=== PATIENT | female | born 1970 | race Caucasian/White ===

== ENCOUNTER → 2020-10-06 12:55 | Outpatient (CLI) | payer OTHER, SELFPAY ==
--- NOTE | ~2020-10-06 | MM_ITS ---
EXAMINATION: MM screening lety BI w stefania HISTORY: Screening mammogram TECHNIQUE: Craniocaudal and mediolateral oblique 3-D tomosynthesis images were obtained and synthetic 2-D images were generated. CAD analysis was submitted and interpreted. COMPARISON: 11/25/2017 bilateral digital screening mammogram BREAST PARENCHYMAL COMPOSITION: The breasts are heterogeneously dense, which may obscure small masses . FINDINGS: Right breast: There is no evidence of suspicious mass, calcification, or architectural distortion to suggest malignancy in the right breast. There has been no suspicious interval change. Left breast: There is asymmetry in the deep central left breast on CC projection. Left diagnostic lety mogram is recommended, with ultrasound if required. IMPRESSION: 1. Left breast mammographic asymmetry 2. Diagnostic left mammogram and, if necessary, left breast ultrasound are recommended BI-RADS Category 0: Incomplete: Needs additional imaging evaluation. Reviewed, dictated and finalized at location A. IMPRESSION: 1. Left breast mammographic asymmetry 2. Diagnostic left mammogram and, if necessary, left breast ultrasound are damaris mmended BI-RADS Category 0: Incomplete: Needs additional imaging evaluation.
== END ==
PROVIDERS: PCP Internal Medicine; Visit Provider Nurse Practitioner
DX: Z12.31 Encounter for screening mammogram for malignant neoplasm of breast (principal); R92.8 Other abnormal and inconclusive findings on diagnostic imaging of breast
CPT/HCPCS: 77063; 77067

== ENCOUNTER → 2020-11-03 07:58 | Outpatient (CLI) | payer OTHER, SELFPAY ==
--- NOTE | ~2020-11-03 | MMUS_ITS ---
EXAMINATION: MM diagnostic mammo unilat LT, US breast LT complete HISTORY: Mammographic asymmetry of left breast on screening mammogram of 10/06/2020 TECHNIQUE: Additional 3-D tomosynthesis images of the left breast were performed and synthetic 2-D im ages were generated. CAD analysis was submitted and interpreted. High resolution complete left breast ultrasound was performed. COMPARISON: 10/06/2020 bilateral digital screening mammogram FINDINGS: MAMMOGRAPHIC FINDINGS: No suspicious mass or architectural distortion or any malignant calcification, skin thickening or ret raction is evident. Heterogeneously dense stroma may obscure masses. Complete left breast ultrasound examination was perf ormed. ULTRASOUND: No suspicious mass or shadowing of the left breast is detected. IMPRESSION: 1. No mammographic evidence of malignancy 2. Routine mammographic screening is recommended BI-RADS Category 1: Negative Reviewed, dictated and finalized at location A. IMPRESSION: 1. No mammographic evidence of malignancy 2. Routine mammographic screening is recommended BI-RADS Category 1: Negative
== END ==
PROVIDERS: Visit Provider Obstetrics & Gynecology Gynecology
DX: R92.8 Other abnormal and inconclusive findings on diagnostic imaging of breast (principal)
CPT/HCPCS: 76641; 77065

== ENCOUNTER → 2022-05-13 07:19 | Outpatient (CLI) | payer OTHER, SELFPAY ==
--- NOTE | ~2022-05-13 | MM_ITS ---
EXAMINATION: MM screening [facility] BI w stefania HISTORY: Screening mammogram TECHNIQUE: Craniocaudal and mediolateral oblique 3-D tomosynthesis images were obtained and synthetic 2-D images were generated. CAD analysis was submitted and interpreted. COMPARISON: 11/03/2020, 10/06/2020, 11/25/2017 BREAST PARENCHYMAL COMPOSITION: The breasts are heterogeneously dense, which may obscure small masses . FINDINGS: No suspicious mass, calcification, or architectural distortion are identified in either hilary ast to suggest malignancy. There has been no suspicious interval change. IMPRESSION: 1. No mammographic evidence of malignancy. 2. Recommend routine screening mammography in one year. BI-RADS Category 1: Negative Reviewed, dictated and finalized at location A. T RAISER
== END ==
PROVIDERS: PCP Internal Medicine; Visit Provider Nurse Practitioner
DX: Z12.31 Encounter for screening mammogram for malignant neoplasm of breast (principal)
CPT/HCPCS: 77063; 77067

== ENCOUNTER 2023-08-29 14:49 | Outpatient (CLI) | payer OTHER, SELFPAY ==
--- NOTE | ~2023-08-29 | MM_ITS ---
EXAMINATION: MM screening lety BI w stefania HISTORY: Screening TECHNIQUE: Craniocaudal and mediolateral oblique 3-D tomosynthesis images were obtained and synthetic 2-D images were generated. CAD analysis was submitted and interpreted. COMPARISON: Comparison to multiple prior studies sequentially, with oldest reviewed study dated 11/25. BREAST PARENCHYMAL COMPOSITION: Dense: The breasts are heterogeneously dense, which may obscure small masses FINDINGS: There is no evidence of suspicious mass, calcification, or architectural distortion to sugg est malignancy in either breast. There has been no suspicious interval change. IMPRESSION: 1. No mammographic evidence of malignancy. 2. Recommend routine screening mammography in one year. BI-RADS Category 1: Negative Reviewed, dictated and finalized at location A.
== END 2023-08-29 14:50 ==
LOC: MICIMG 14:50
PROVIDERS: PCP Nurse Practitioner; Visit Provider Nurse Practitioner
DX: Z12.31 Encounter for screening mammogram for malignant neoplasm of breast (principal)
CPT/HCPCS: 77063; 77067

== ENCOUNTER 2023-11-07 08:40 | Outpatient (CLI) | payer OTHER, SELFPAY ==
--- NOTE | ~2023-11-07 | DEXA_ITS ---
Bone Density Report Name: RANGEL MCNEAL Age: 53 Sex: Female Ethnicity: White Date of : 1970 Indication: postmenopausal; screening for osteoporosis; Referring Provider: JOSE, SHELLIE Study: Bone densitometry was performed. Exam Date: November 07, 2023 Accession number: [id number] Bone Density: Region BMD T-score Z-score Classification AP Spine (L1-L4) 0.967 -0.7 0.2 Normal Femoral Neck (Left) 0.680 -1.5 -0.6 Osteopenia Total Hip (Left) 0.837 -0.9 -0.3 Normal Femoral Neck (Right) 0.682 -1.5 -0.6 Osteopenia Total Hip (Right) 0.841 -0.8 -0.2 Normal Total Hip Mean 0.839 -0.9 -0.3 Normal World Health Organization criteria for BMD impression classify patients as: Normal (T-score at or above -1.0), Osteopenia (T-score between -1.0 and -2.5), or Osteoporosis (T-score at or below -2.5). 10-year Fracture Risk(1): Major Osteoporotic Fracture 5.9% Hip Fracture 0.5% Reported Risk Factors: [place] (), Neck BMD=0.682, BMI=24.7 (1) FRAX(R) Version 3.08. Fracture probability calculated for an untreated patient. Fracture probability may be lower if the patient has received treatment. Clinical Information Provided by Patient: Has used the following medications: Vitamin D, Calcium Patient maximum height was 60 Menopause Age: 50 Does not regularly consume dairy products Drinks caffeinated beverages Onset of menses at age 12 Number of children 2 Impression: The patient has low bone mass, based on the Left Femoral Neck T-score. The patient has an estimated ten-year risk of hip fracture of 0.5% and an estimated ten-year risk of major fracture of 5.9%, based on the WHO FRAX algorithm. Discussion: BONE DENSITY IS LOW AT ONE OR MORE SKELETAL SITES. This patient's lowest T-score is low at one or more skeletal sites. It meets the World Health Organization's (WHO) criteria for ?low bone mass? (T-score between -1.0 and -2.5). The patient's 10-year risk of fracture as calculated by FRAX is less than the threshold where pharmacological therapy is recommended by the National Osteoporosis Foundation (NOF). However, all treatment decisions require clinical judgment and consideration of individual patient factors, including patient preferences, comorbidities, previous drug use, risk factors not captured in the FRAX model (e.g., frailty, falls, vitamin D deficiency, increased bone turnover, interval significant decline in bone density) and possible under or overestimation of fracture risk by FRAX. The patient should follow a healthful lifestyle (good nutrition with adequate calcium and vitamin D, and appropriate weight-bearing exercise). Follow-Up: Consider repeating this study in 2 to 3 years to reassess this patient's status, or sooner if there is some new clinical indication. Reported by: CHIKA
== END 2023-11-07 08:41 ==
LOC: MICIMG 08:42
PROVIDERS: PCP Nurse Practitioner; Visit Provider Nurse Practitioner
DX: M85.89 Other specified disorders of bone density and structure, multiple sites (principal); Z78.0 Asymptomatic menopausal state; Z13.820 Encounter for screening for osteoporosis
CPT/HCPCS: 77080

== ENCOUNTER 2024-03-24 05:58 | Day surgery (SDC) | payer OTHER, SELFPAY ==
[2023-12-05 12:07] VITALS: BMI 26.4
[2024-03-09 09:06] VITALS: BMI 23.9
--- NOTE | 2024-03-23 17:07 | P.PNAN_ITS ---
Anes - Eval Pre Procedure Procedure: Operation Date: 03/24/24 07:30 Proposed Procedures p Screening Colonoscopy - Ronan Carrington MD Date/Time: 03/23/24 17:07 Pre Op Diagnosis: Screening neoplasm of colon Patient Data Age: 53 Gender: F Height: 1.52 m Weight: 55.6 kg Allergies Allergy/AdvReac Type Severity Reaction Status Date / Time Penicillins Allergy Unknown Unknown Verified 03/09/24 09:05 Home Medications Medication Instructions Recorded Confirmed Type sodium,potassium,mag sulfates 17.5 See Rx Instructions PO .COMPLEX 12/05/23 Rx gram-3.13 gram-1.6 gram oral soln #354 mL (Suprep Bowel Prep Kit) cholecalciferol (vitamin D3) 25 25 mcg PO DAILY 03/09/24 03/09/24 History mcg (1,000 unit) tablet (Vitamin D3) Patient hx anesthesia problems: none Family hx anesthesia problems: none Results Review: All pre-operative results and documents have been reviewed as part of the pre- operative evaluation. PMFSH Past Medical History Medical History Hyperlipidemia Hypertension Social History Social History Smoking status: Never smoker Second hand tobacco smoke exposure: No Alcohol intake: current Alcohol use details: 2 per month Substance use type: does not use Living arrangements: with family Spiritual care concerns: No Exam Day of Procedure 03/23/24 17:07 Patient weight: normal
[2024-03-24 06:30] VITALS: BP 131/80; PULSE 71; RESP 18; TEMP 36.6; O2SAT 99
--- NOTE | 2024-03-24 06:52 | P.PNAN_ITS ---
Anes - Initial Pre Proc Eval Procedure: Operation Date: 03/24/24 07:30 Proposed Procedures p Screening Colonoscopy - Ronan Carrington MD Date/Time: 03/24/24 06:52 Surgeon: Ronan Carrington MD Pre Op Diagnosis: Screening neoplasm of colon Patient Data Age: 53 Gender: F Height: 1.52 m Weight: 55.6 kg Allergies Allergy/AdvReac Type Severity Reaction Status Date / Time Penicillins Allergy Unknown Unknown Verified 03/24/24 06:28 Home Medications Medication Instructions Recorded Confirmed Type sodium,potassium,mag sulfates 17.5 See Rx Instructions PO .COMPLEX 12/05/23 Rx gram-3.13 gram-1.6 gram oral soln #354 mL (Suprep Bowel Prep Kit) cholecalciferol (vitamin D3) 25 25 mcg PO DAILY 03/09/24 03/24/24 History mcg (1,000 unit) tablet (Vitamin D3) Patient hx anesthesia problems: none Family hx anesthesia problems: none Results Review: All pre-operative results and documents have been reviewed as part of the pre- operative evaluation. PMFSH Past Medical History Medical History Hyperlipidemia Hypertension Social History Social History Smoking status: Never smoker Second hand tobacco smoke exposure: No Alcohol intake: current Alcohol use details: 2 per month Substance use type: does not use Living arrangements: with family Spiritual care concerns: No Anes - Eval Final PreProcedure Day of Procedure 03/24/24 06:52 Patient weight: normal Heart: regular rate and rhythm Lungs: clear to auscultation and normal air movement Airway: Mallampati scale class II Neurological: alert and oriented Last oral intake: >/= 8 hours ASA classification: II Emergent: no Anesthetic plan: proceed Anesthesia type and monitoring: general GIVS and standard monitoring Results Review: All pre-operative results and documents have been reviewed as part of the pre- operative evaluation. Informed Consent: The patient's anesthetic plan and its attendant risks and benefits were discussed with the patient/family/POA. Questions were solicited and answers provided to the satisfaction of the patient/family/POA.
[2024-03-24] MEDS: LACTATED RINGERS 1,000 ML 150 ML IV CONT (06:56)
[2024-03-24 07:08] VITALS: BMI 23.1
--- NOTE | 2024-03-24 07:12 | PM.HPGS ---
History of Present Illness History of Present Illness Consent: Risks, benefits, and alternatives have been discussed and questions answered. Patient agrees to proceed with procedure. 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 Patient's current weight appetite and bowel movements are normal. She denies abdominal pain. Has had no bleeding. Family history is noncontributory. Review of Systems Review of Systems: All systems reviewed & are unremarkable except as noted in HPI and below PMFSH Past Medical History Medical History Hyperlipidemia Hypertension Social History Social History Smoking status: Never smoker Second hand tobacco smoke exposure: No Alcohol intake: current Alcohol use details: 2 per month Substance use type: does not use Living arrangements: with family Spiritual care concerns: No Meds Home Medications and Allergies Home Medications Medication Instructions Recorded Confirmed Type sodium,potassium,mag sulfates 17.5 See Rx Instructions PO .COMPLEX 12/05/23 Rx gram-3.13 gram-1.6 gram oral soln #354 mL (Suprep Bowel Prep Kit) cholecalciferol (vitamin D3) 25 25 mcg PO DAILY 03/09/24 03/24/24 History mcg (1,000 unit) tablet (Vitamin D3) Allergies Allergy/AdvReac Type Severity Reaction Status Date / Time Penicillins Allergy Unknown Unknown Verified 03/24/24 06:28 Exam Narrative: Physical exam reveals patient to be alert. Signs stable. HEENT exam is unremarkable. Patient is anicteric. Lungs are clear to auscultation and percussion this without murmur extra sounds. Abdomen bowel sounds are present soft nontender with no organomegaly. Digital external rectal exam normal. Assessment and Plan Assessment and plan (1) Screen for colon cancer: Code(s): Z12.11 - Encounter for screening for malignant neoplasm of colon Status: Acute Assessment and Plan: Patient presents today for screening colonoscopy. She appears to be at average risk for colon polyps. Further recommendations may be given after endoscopy.
[2024-03-24 07:43] VITALS: BP 117/66; PULSE 89; RESP 18; O2SAT 100
[2024-03-24 07:53] VITALS: BP 100/73; PULSE 86; RESP 15; O2SAT 100
[2024-03-24 08:03] VITALS: BP 113/83; PULSE 76; RESP 15; O2SAT 100
--- NOTE | 2024-03-24 12:29 | WPDANESPN ---
Anes - Prog Note Post-Op Date/Time: 03/24/24 12:29 Cardiovascular status: normal Respiratory status: normal Airway patency: baseline Mental status: baseline Post-Op hydration status: normal Vital Signs: Last Vital Signs Temp 36.6 C 03/24/24 06:30 Pulse 76 03/24/24 08:03 Resp 15 03/24/24 08:03 BP 113/83 03/24/24 08:03 Pulse Ox 100 03/24/24 08:03 O2 Del Method Room Air 03/24/24 08:03 Pain Score (VAS): 0 I/O: Intake & Output 03/23/24 03/24/24 03/24/24 23:59 07:59 15:59 Intake Total 500 Balance 500 Post-procedural complaints: none Patient Feedback: Patient satisfied with anesthetic care. Other Findings: Patient vital signs back to baseline. Patient denies nausea and vomiting. Patient's pain under control. Patient OK for discharge.
== END 2024-03-24 08:08 | disposition home or self-care (01) ==
PROVIDERS: PCP Internal Medicine; Visit Provider Internal Medicine Gastroenterology
PROC: 0DJD8ZZ Inspection of Lower Intestinal Tract, Via Natural or Artificial Opening Endoscopic (ICD-10-PCS; CPT 45378; principal; 2024-03-24 07:30)
DX: Z12.11 Encounter for screening for malignant neoplasm of colon (principal); K64.8 Other hemorrhoids
CPT/HCPCS: 45378

== ENCOUNTER 2025-03-21 10:52 | Outpatient (CLI) | payer OTHER, SELFPAY ==
--- NOTE | ~2025-03-21 | MM_ITS ---
EXAMINATION: MM screening lety BI w stefania HISTORY: Screening TECHNIQUE: Craniocaudal and mediolateral oblique 3-D tomosynthesis images were obtained and synthetic 2-D images were generated. CAD analysis was submitted and interpreted. COMPARISON: 05/13/2022 BREAST PARENCHYMAL COMPOSITION: The breasts are extremely dense, which lowers the sensitivity of mammography. FINDINGS: There is no evidence of suspicious mass, calcification, or architectural distortion to suggest malignancy. There has been no suspicious interval change. IMPRESSION: 1. No mammographic evidence of malignancy. Recommend routine screening mammography in one year. BI-RADS Category 2: Benign finding(s) Reviewed, dictated and finalized at location Q. IMPRESSION: 1. No mammographic evidence of malignancy. Recommend routine screening mammogra phy in one year. BI-RADS Category 2: Benign finding(s)
== END 2025-03-21 10:53 | disposition home or self-care (01) ==
LOC: MICIMG 10:54
PROVIDERS: PCP Internal Medicine; Visit Provider Obstetrics & Gynecology Gynecology
DX: Z12.31 Encounter for screening mammogram for malignant neoplasm of breast (principal)
CPT/HCPCS: 77063; 77067